=== PATIENT | male | born 1985 | race Caucasian/White ===

== ENCOUNTER 2019-10-22 08:33 | Emergency (ER) | payer OTHER ==
--- NOTE | 2019-10-22 09:35 | EDM.PDOC ---
ED HPI GENERAL MEDICAL PROBLEM - General Chief Complaint: Skin Complaint Stated Complaint: LEFT LEG PAIN INFECTION Time Seen by Provider: 10/22/19 09:03 Source of Information: Reports: Patient - History of Present Illness INITIAL COMMENTS - FREE TEXT/NARRATIVE: History of present illness: 34-year-old male presenting with garza pain, concerned about an infection. About 4-5 days ago he was hit by a metallic piece of a combine and sustained a laceration/abrasion. He had to work for the remainder of 2 hours but then was able to clean it out with peroxide and has been putting bacitracin on it since then. The area has remained swollen and family friend that was in healthcare told him he may have compartment syndrome or an infection and that he should get checked out emergency room. There are no signs of compartment syndrome on examination. No fevers. Review of systems: As per history of present illness and below otherwise all systems reviewed and negative. Past medical history: As per history of present illness and as reviewed below otherwise noncontributory. Surgical history: As per history of present illness and as reviewed below otherwise noncontributory. Social history: No reported history of drug or alcohol abuse. Never smoker Family history: As per history of present illness and as reviewed below otherwise noncontributory. Physical exam: GEN: no acute distress, well appearing HEENT: Atraumatic, normocephalic, mucous membranes moist Neck: supple. Lungs: No respiratory distress. Heart: RRR Extremities: Both upper extremities and right lower extremity are unremarkable and atraumatic. Left lower extremity in the anterior garza and the soft tissue there is an abrasion that appears to have some surrounding erythema and beneath that contusion. No fluctuance or signs of abscess. The compartment in this area as well as all other compartments of the left lower leg are soft without any signs of compartment syndrome. The patient is distally neurovascularly intact. No calf tenderness. Neuro: Awake, alert, oriented. Neuro Exam nonfocal. Skin: warm, dry, scabbed abrasion with underlying contusion and mild erythema Diagnostics: Not indicated Therapeutics: Keflex sent to pharmacy MDM: Impression: [] Plan: [] Definitive disposition and diagnosis as appropriate pending reevaluation and review of above. Left Lower Leg Pain Score (Numeric/FACES): 4 - Related Data Allergies Allergy/AdvReac Type Severity Reaction Status Date / Time No Known Allergies Allergy Verified 10/22/19 09:03 Home Meds: Home Meds cephALEXin [Keflex] 1,000 mg PO BID #40 cap 10/22/19 [Rx] Past Medical History HEENT History: Reports: None Cardiovascular History: Reports: None Respiratory History: Reports: None Gastrointestinal History: Reports: None Genitourinary History: Reports: None Musculoskeletal History: Reports: None Neurological History: Reports: None Psychiatric History: Reports: None Endocrine/Metabolic History: Reports: None Hematologic History: Reports: None Immunologic History: Reports: None Oncologic (Cancer) History: Reports: None Dermatologic History: Reports: None - Infectious Disease History Infectious Disease History: Reports: Chicken Pox Social & Family History - Tobacco Use Smoking Status *Q: Never Smoker - Caffeine Use Caffeine Use: Reports: None - Recreational Drug Use Recreational Drug Use: No ED ROS GENERAL - Review of Systems Review Of Systems: See Below (See HPI) ED EXAM, SKIN/RASH Exam: See Below (See HPI) Course - Vital Signs Text/Narrative:: Suspect contusion from injury 4 to 5 days ago. Possible early developing infection and therefore will cover with Keflex. No signs of compartment syndrome. I did discuss compartment syndrome symptoms and signs and plan for self examination with the patient at length. He did voice understanding of the above. Plan to keep the leg elevated, warm compresses 4 times a day for 20 minutes a day, and antibiotics as prescribed. Return to emergency department for any worsening. Last Recorded V/S: Last Vital Signs Temp 97.4 F 10/22/19 10:12 Pulse 59 L 10/22/19 10:12 Resp 16 10/22/19 10:12 BP 132/90 10/22/19 10:12 Pulse Ox 99 10/22/19 10:12 Departure - Departure Time of Disposition: 09:54 Disposition: Home, Self-Care 01 Clinical Impression: Infected wound Contusion Qualifiers: Encounter type: initial encounter Contusion area: lower leg Laterality: left Qualified Code(s): S80.12XA - Contusion of left lower leg, initial encounter - Discharge Information Prescriptions: cephALEXin [Keflex] 1,000 mg PO BID #40 cap Instructions: Contusion, Wound Infection, [id number] Referrals: PCP,None [Primary Care Provider] - Forms: ED Department Discharge Additional Instructions: Please keep the leg elevated as much as possible, apply warm compresses 4 times a day for 20 minutes a day, and antibiotics as prescribed, until all pills are gone. Return to emergency department for any worsening. Follow-up with 1 of the primary care clinics listed below for further routine outpatient primary care. The following information is given to patients seen in the emergency department who are being discharged to home. This information is to outline your options for follow-up care. We provide all patients seen in our emergency department with a follow-up referral. The need for follow-up, as well as the timing and circumstances, are variable d epending upon the specifics of your emergency department visit. If you don't have a primary care physician on staff, we will provide you with a referral. We always advise you to contact your personal physician following an emergency department visit to inform them of the circumstance of the visit and for follow-up with them and/or the need for any referrals to a consulting specialist. The emergency department will also refer you to a specialist when appropriate. This referral assures that you have the opportunity for follow-up care with a specialist. All of these measure are taken in an effort to provide you with optimal care, which includes your follow-up. Under all circumstances we always encourage you to contact your private physician who remains a resource for coordinating your care. When calling for follow-up care, please make the office aware that this follow-up is from your recent emergency room visit. If for any reason you are refused follow-up, please contact the Emergency Department at and asked to speak to the emergency department charge nurse. [facility] [address] [place] [id number] [facility] [address] [place] [address] Sepsis Event Note (ED) - Evaluation Sepsis Screening Result: No Definite Risk - Focused Exam Vital Signs: Vital Signs Temp Pulse Resp BP Pulse Ox 10/22/19 10:12 97.4 F 59 L 16 132/90 99 10/22/19 08:56 97.3 F 63 18 146/83 H 100
== END 2019-10-22 10:16 | disposition home or self-care (01) ==
LOC: MW.ED 08:33
DX: S80.12XA Contusion of left lower leg, initial encounter (principal); L08.9 Local infection of the skin and subcutaneous tissue, unspecified; W22.8XXA Striking against or struck by other objects, initial encounter
CPT/HCPCS: 99282; 99283